=== PATIENT | male | born 1995 | race Caucasian/White ===

== ENCOUNTER 2023-04-12 02:16 | Emergency (ER) | payer MEDICAID ==
[~2023-04-12] VITALS: Ht 167.6 cm; Wt 72.7 kg
[2023-04-12 02:22] VITALS: BP 140/101
[2023-04-12] MEDS ORDERED: tetanus & diphtheria toxoid (Td) vaccine 0.5ml IMVAC ONE (02:50)
[2023-04-12] MEDS ORDERED: TETanus/Pertussis (Acell)/Diphther VAC/PF (Tdap-Adult) 0.5ml syringe IMVAC ONE (03:00)
== END 2023-04-12 03:11 | disposition home or self-care (01) ==
LOC: ER 02:18
DX: S01.01XA Laceration without foreign body of scalp, initial encounter (principal); X58.XXXA Exposure to other specified factors, initial encounter; Y93.89 Activity, other specified; Y92.89 Other specified places as the place of occurrence of the external cause; Y99.8 Other external cause status
CPT/HCPCS: 12002; 90471; 90715; 99283

== ENCOUNTER 2023-04-20 19:53 | Emergency (ER) | payer MEDICAID ==
[~2023-04-20] VITALS: Ht 172.7 cm; Wt 68.2 kg
[2023-04-20 19:58] VITALS: BP 115/66
== END 2023-04-20 20:41 | disposition home or self-care (01) ==
LOC: ER 19:53
DX: S01.01XD Laceration without foreign body of scalp, subsequent encounter (principal); Z48.02 Encounter for removal of sutures; Z91.040 Latex allergy status; X58.XXXD Exposure to other specified factors, subsequent encounter
CPT/HCPCS: 99281